=== PATIENT | male | born 2005 | race Caucasian/White ===

== ENCOUNTER → 2024-07-08 12:26 | Outpatient (REF) | payer OTHER, SELFPAY | LOC: RAD 12:26 | PROVIDERS: ATTENDING PHYSICIAN Emergency Medicine | DX: J45.40 Moderate persistent asthma, uncomplicated (principal) | CPT/HCPCS: 71046 ==

== ENCOUNTER → 2024-09-30 09:07 | Outpatient (REF) | payer OTHER, SELFPAY | LOC: HWRCS 09:07 | PROVIDERS: ATTENDING PHYSICIAN Family Medicine; FAMILY PHYSICIAN Emergency Medicine | DX: I44.0 Atrioventricular block, first degree (principal) | CPT/HCPCS: 93306 ==